=== PATIENT | male | born 1970 | race Caucasian/White ===

== ENCOUNTER 2018-07-01 08:21 | Emergency (ER) | payer OTHER ==
[~2018-07-01] VITALS: Ht 177.8 cm; Wt 67.0 kg
[~2018-07-01 08:21] MED LIST: FLEXERIL10 MG PO; IMITREX25 MG PO; LOPRESSOR25 MG PO; NOHOMEMEDS; PERCOCET 5/31 TABLET PO; SEROQUEL XR200 MG PO
[2018-07-01 10:10] LABS: HEMATOCRIT 49.6 % (38.0-50.0); HEMOGLOBIN 16.9 G/DL (12.5-16.6); MCH 30.2 PG (29.0-34.0); MCHC 34.1 G/DL (30.0-36.0); MCV 88.7 FL (86-99); PLATELET COUNT 211 K/uL (156-360); RBC DIS.WIDTH-CV 13.3 % (11.8-14.6); RBC DIS.WIDTH-SD 43.3 % (39-53); RED BLOOD COUNT 5.59 M/uL (4.00-5.50)
[2018-07-01 10:19] LABS: ALBUMIN 4.9 g/dL (3.2-4.8); CHLORIDE 109 mEq/L (99-109); POTASSIUM 4.1 mEq/L (3.7-5.4); SODIUM 147 mEq/L (136-147)
[2018-07-01 10:22] LABS: GLUCOSE 110 mg/dL (70-99); TOTAL PROTEIN 8.1 g/dL (6.4-8.3)
[2018-07-01 10:23] LABS: TOTAL BILIRUBIN 0.3 mg/dL (0.0-1.0)
[2018-07-01 10:24] LABS: SERUM ETHYL ALCOHOL 199 mg/dL
[2018-07-01 10:25] LABS: ALKALINE PHOSPHATASE 77 IU/L (3-129); CREATININE 0.8 mg/dL (0.6-1.3); GFR ESTIMATE (CALCULATED) > 59 mL/min/ (58.99-99999)
[2018-07-01 10:26] LABS: UREA NITROGEN (BUN) 14 mg/dL (9-23)
[2018-07-01 10:27] LABS: AST (GOT) 18 IU/L (2-34)
[2018-07-01 10:28] LABS: ALT (GPT) 16 IU/L (3-49)
[2018-07-01 10:37] LABS: APPEARANCE CLEAR ((CLEAR)); BILIRUBIN NEGATIVE; BLOOD MODERATE; COLOR YELLOW ((YELLOW)); GLUCOSE (STRIP) NEGATIVE; KETONES 20; LEUKOCYTES NEGATIVE; NITRITE NEGATIVE; PROTEIN (STRIP) 100; UROBILINOGEN 0.2 MG/DL (0.2-1.0)
[2018-07-01 10:46] LABS: BACTERIA NONE SEEN /HPF; EPITHELIAL CELLS NONE SEEN /HPF; HYALINE CASTS 20-30 /LPF; MUCUS 1+ /LPF; RED BLOOD CELLS 0-5 /HPF (0-5); WHITE BLOOD CELLS 0-5 /HPF (0-5)
[2018-07-01 10:47] LABS: AMPHETAMINE NEGATIVE (500 ng/mL); BARBITURATES NEGATIVE (200 ng/mL); BENZODIAZEPINES NEGATIVE (150 ng/mL); BUPRENORPHINE NEGATIVE (10 ng/mL); COCAINE NEGATIVE (150 ng/mL); METHADONE NEGATIVE (200 ng/mL); METHAMPHETAMINE NEGATIVE (500 ng/mL); OPIATES (MORPHINE) NEGATIVE (100 ng/mL); OXYCODONE NEGATIVE (100 ng/mL); PHENCYCLIDINE NEGATIVE (25 ng/mL); PROPOXYPHENE NEGATIVE (300 ng/mL); THC CANNABINOIDS NEGATIVE (50 ng/mL); TRICYCLIC ANTIDEPRESSANTS NEGATIVE (300 ng/mL)
[2018-07-01 12:40] VITALS: BP 138/87
== END 2018-07-01 12:44 | disposition home or self-care (01) ==
LOC: EME 08:21
PROVIDERS: Emergency Medicine
DX: F19.10 Other psychoactive substance abuse, uncomplicated (principal); G40.909 Epilepsy, unspecified, not intractable, without status epilepticus; F32.9 Major depressive disorder, single episode, unspecified; Z87.820 Personal history of traumatic brain injury; Z87.891 Personal history of nicotine dependence; Z88.6 Allergy status to analgesic agent
CPT/HCPCS: 70450; 80053; 81003; 85027; 93005; 99281; 99284; G0480; J7030